=== PATIENT | male | born 2000 | race Caucasian/White ===

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

== ENCOUNTER 2018-11-28 18:19 | Emergency (ER) | payer OTHER ==
[~2018-11-28] VITALS: Ht 190.5 cm; Wt 117.9 kg
[2018-11-28] MEDS ORDERED: PRD20T PO (18:49)
[2018-11-28] MEDS ORDERED: METH-313 PO (18:49)
--- NOTE | 2018-11-28 18:49 | ED Back Pain ---
General Chief Complaint: Back Problems Stated Complaint: BACK INJ Nursing Triage Note: Pt amb to triage w/o difficulty. a&ox4. c/o back injury while lifting boxes off of a shelf while working @ [employer] ([place], [place]). Reports medial back pain that increases in severity while turning body to the rt. Nursing Sepsis Screen: No Definite Risk Source of Information: Patient Exam Limitations: No Limitations History of Present Illness Date Seen by Provider: Nov 28, 2018 Time Seen by Provider: 18:45 Initial Comments To ER per private vehicle with reports of mid thoracic back pain. This began suddenly at work today, he works at [employer] in [facility], lives here in [place]. He was lifting boxes which were light weight off of a shelf, suddenly while twisting he had onset of mid thoracic back pain worse with turning to the right. No shortness of breath no falls no loss of bowel or bladder control no loss of sensation of genitals no fevers. Location: Paraspinous Muscles, T-Spine Timing/Duration: 4-6 Hours Associated Symptoms: denies symptoms Allergies and Home Medications Allergies Coded Allergies: guaifenesin (Verified Allergy, Mild, 05/31/16) Home Medications Hydrocodone Bit/Acetaminophen 1 Each Tablet, 1 EACH PO Q6H PRN for PAIN Prescribed by: CONSUELO TEIXEIRA on 05/31/162010 Sulfamethoxazole/Trimethoprim 1 Each Tablet, 1 EACH PO BID Prescribed by: CONSUELO TEIXEIRA on 05/31/162007 Trimethoprim/Sulfamethoxazole 1 Ea Tablet, 1 EA PO BID Prescribed by: CONSUELO TEIXEIRA on 04/02/14 1427 Patient Home Medication List Home Medication List Reviewed: Yes Review of Systems Constitutional: see HPI; No chills, No fever EENTM: see HPI Respiratory: no symptoms reported Cardiovascular: no symptoms reported Genitourinary: no symptoms reported Musculoskeletal: see HPI, back pain Skin: no symptoms reported Psychiatric/Neurological: No Symptoms Reported Past Pvrlome-Xojxxz-Nwfatn Hx Patient Social History Alcohol Use: Rarely Uses Number of Drinks Today: 0 Recreational Drug Use: No Smoking Status: Never a Smoker 2nd Hand Smoke Exposure: No Recent Foreign Travel: No Contact w/Someone Who Travel: No Recent Infectious Disease Expo: No Recent Hopitalizations: No Immunizations Up To Date Tetanus Booster (TDap): Less than 5yrs Past Medical History Surgeries: No Respiratory: No Cardiac: No Hypertension Neurological: No Gastrointestinal: No Musculoskeletal: No Endocrine: No HEENT: No Cancer: No Psychosocial: No Integumentary: Yes (MRSa) Family Medical History No Pertinent Family Hx Physical Exam Vital Signs Vital Signs - First Documented 11/28/18 18:29 Temp 98.3 Pulse 62 Resp 17 B/P (MAP) 135/68 (90) Pulse Ox 97 O2 Delivery Room Air Capillary Refill : Less Than 3 Seconds Height, Weight, BMI Height: 6'3.00" Weight: 260lbs. oz. 117.247746ps; 28.12 BMI Method:Stated General Appearance: No Apparent Distress, WD/WN Respiratory: No Accessory Muscle Use, No Respiratory Distress Back: No Decreased Range of Motion, No Muscle Spasm, No Vertebral Tenderness Extremity: Normal Capillary Refill, Normal Inspection Neurologic/Psychiatric: Alert, Oriented x3 Skin: Normal Color, Warm/Dry Progress/Results/Core Measures Results/Orders Vital Signs/I&O 11/28/18 18:29 Temp 98.3 Pulse 62 Resp 17 B/P (MAP) 135/68 (90) Pulse Ox 97 O2 Delivery Room Air Blood Pressure Mean: 90 Departure Impression Primary Impression: Back strain of thoracic region Qualified Codes: S29.019A - Strain of muscle and tendon of unspecified wall of thorax, initial encounter Disposition: 01 HOME, SELF-CARE Condition: Stable Departure-Patient Inst. Decision time for Depature: 18:47 Referrals: NO,LOCAL PHYSICIAN (PCP/Family) Primary Care Physician Patient Instructions: Upper Back Pain (DC) Add. Discharge Instructions: 1. Follow-up with occupational health 2. Return to ER for any concerns 3. Medication as directed. All discharge instructions reviewed with patient and/or family. Voiced understanding. Scripts Methocarbamol (Robaxin-750) 750 Mg Tablet 750 MG PO Q6H PRN for PAIN-MODERATE TO SEVERE, #20 TAB Prov: TOMMY GROSS APRN 11/28/18 Prednisone (Prednisone) 20 Mg Tab 40 MG PO DAILY, #8 TAB Prov: TOMMY GROSS APRN 11/28/18 Images Torso/Trunk 1 - Other-See Progress Note TOMMY GROSS APRN Nov 28, 2018 18:49
[2018-11-28 18:58] VITALS: BP 135/68
== END 2018-11-28 18:58 | disposition home or self-care (01) ==
LOC: EDUNIT# 18:19 → ER 18:23
DX: S29.012A Strain of muscle and tendon of back wall of thorax, initial encounter (principal); I10 Essential (primary) hypertension; Z86.14 Personal history of Methicillin resistant Staphylococcus aureus infection; Z88.8 Allergy status to other drugs, medicaments and biological substances; X50.1XXA Overexertion from prolonged static or awkward postures, initial encounter; Y92.59 Other trade areas as the place of occurrence of the external cause; Y99.0 Civilian activity done for income or pay
CPT/HCPCS: 99281